=== PATIENT | female | born 1990 | race Asian ===

== ENCOUNTER 2017-06-28 10:23 | Emergency (ER) | payer OTHER ==
[2017-06-28] MEDS ORDERED: NS 1,000 ML IV ONE (11:02)
--- NOTE | 2017-06-28 11:05 | EDPHY ---
H & P Time Seen by Provider: 06/28/17 10:34 HPI/ROS: CHIEF COMPLAINT: Abdominal pain HISTORY OF PRESENT ILLNESS: 27-year-old female presents to the emergency department with left-sided abdominal pain. Pain began abruptly around 6 o' clock this morning. She states that she got up to use the bathroom and noticed pain in her left lower quadrant which was getting worse. She went to the formerly named [facility] on campus and had laboratory studies drawn and gave a urine specimen. She was sent to the emergency department for further evaluation. She denies nausea or vomiting. She had normal bowel movement this morning. No diarrhea. No back pain. No chest pain or difficulty breathing. Patient has never had pain like this in the past. Her last menstrual period was 3 weeks ago and she denies . She is in a monogamous relationship with another woman for last 6 months. Her partner has no symptoms. The patient is not concerned about sexually transmitted infections. REVIEW OF SYSTEMS: Constitutional: No fever, no chills. Eyes: No double or blurry vision. ENT: No sore throat. Respiratory: No cough, no shortness of breath. Cardiac: No chest pain. Gastrointestinal: Abdominal pain as above. No vomiting or diarrhea. Genitourinary: No dysuria. Musculoskeletal: No neck or back pain. Skin: No rashes. Neurological: No headache. Past Medical/Surgical History: Negative Social History: Single Smoking Status: Never smoked Physical Exam: General Appearance: Alert, no distress. Eyes: Pupils equal and round. Extraocular motions are all intact. ENT: Mouth: Mucous membranes moist. Respiratory: No wheezing, rhonchi, or rales, lungs are clear to auscultation. Cardiovascular: Regular rate and rhythm. Gastrointestinal: Abdomen is soft. Tenderness with palpation in the left lower quadrant. There is no masses, rebound or guarding noted. No CVA tenderness bilaterally. Genitourinary: Deferred Neurological: Alert and oriented x 3, cranial nerves II through XII grossly intact Skin: Warm and dry, no rashes. Musculoskeletal: Nontender to palpate along the cervical, thoracic or lumbar spine. Neck is supple. Extremities: Full range of motion and no peripheral edema. Psychiatric: Patient is oriented X 3, there is no agitation. Constitutional: Initial Vital Signs Temperature (C) 36.6 C 06/28/17 10:25 Heart Rate 86 06/28/17 10:25 Respiratory Rate 18 06/28/17 10:25 Blood Pressure 132/88 H 06/28/17 10:25 O2 Sat (%) 97 06/28/17 10:25 O2 Delivery Mode Room Air Allergies/Adverse Reactions: No Known Allergies Allergy (Verified 06/28/17 21:45) Home Medications: Medication Instructions Recorded oxyCODONE/APAP 5/325 [Percocet 1 - 2 tab PO Q4-6PRN PRN #15 tab 06/28/17 5/325] Medical Decision Making - Diagnostics Imaging: Discussed imaging studies w/ cap lining machine operator Radiologist ED Course/Re-evaluation: 27-year-old female presents to the emergency department with abdominal pain. Laboratory studies were reviewed from her visit earlier today at [facility]. Pelvic ultrasound reveals large 10 cm cyst the right ovary without evidence of torsion. Unable to visualize the left ovary. Patient required IV pain medication. I spoke with the on-call OBGYN, Dr. Dixon, who came to evaluate the patient. She did a bedside ultrasound as well as pelvic exam and she feels that the 10 cm cyst could possibly be on the left ovary. She states it is difficult to tell. She will be discharged home and will follow up as an outpatient with the OBGYN next week. Patient was comfortable being discharged home. She will return if she develops worsening pain, vomiting, altered mental status, or any other concerns. Differential Diagnosis: Including but not limited to ovarian cyst, ovarian torsion, acute appendicitis, urinary tract infection, pyelonephritis, kidney stone - Data Points Laboratory Results: 06/28/17 13:25 C.trachomatis RNA (TMA) NEGATIVE (NEGATIVE) N.gonorrhoeae RNA (TMA) NEGATIVE (NEGATIVE) Medications Given: Discontinued Medications Sodium Chloride (Ns) 1,000 mls @ 0 mls/hr IV ONCE ONE PRN Reason: Wide Open Stop: 06/28/17 11:03 Last Admin: 06/28/17 12:09 Dose: Not Given Oxycodone/Acetaminophen (Percocet 5/325) 1 tab PO EDNOW ONE Stop: 06/28/17 14:49 Last Admin: 06/28/17 14:59 Dose: 1 tab Departure - Departure Disposition: Home, Routine, Self-Care Clinical Impression: Ovarian cyst Qualifiers: Laterality: left Qualified Code(s): N83.202 - Unspecified ovarian cyst, left side Abdominal pain Qualifiers: Abdominal location: left lower quadrant Qualified Code(s): R10.32 - Left lower quadrant pain Condition: Good Instructions: Ovarian Cyst (ED), Acute Abdominal Pain (ED) Additional Instructions: Abdominal Pain: Return to the Emergency Department immediately for increasing pain, fever, vomiting, or if not completely better in 8-12 hours. Follow-up with Dr. Shantelle Dixon OBGYN, in 1 week to recheck. Ibuprofen 600 mg every 8 hr as needed for pain. Percocet for severe pain as directed. Referrals: Shantelle Dixon MD [Medical Doctor] - 5-7 days, call for appt. (OBGYN on-call) Prescriptions: oxyCODONE/APAP 5/325 [Percocet 5/325] 1 - 2 tab PO Q4-6PRN PRN #15 tab PRN Reason: For Moderate To Severe Pain
[2017-06-28 12:46] VITALS: RESP 16; TEMP 98.6
[2017-06-28] MEDS ORDERED: OXYCODONE/APAP 5/325 TAB PO ONE (14:48)
[2017-06-28 15:22] VITALS: BP 134/79; PULSE 92; O2SAT 96
[2017-06-29] MEDS ORDERED: ROCURONIUM 50 MG/5 ML VIAL ONE (09:02)
[2017-06-29] MEDS ORDERED: RANITIDINE 50 MG/2 ML VIAL ONE (09:02)
[2017-06-29] MEDS ORDERED: fentaNYL 250 MCG/5 ML INJ ONE (09:02)
[2017-06-29] MEDS ORDERED: PROPOFOL 200 MG/20 ML VIAL ONE (09:02)
[2017-06-29] MEDS ORDERED: DEXAMETHASONE 4 MG/ML VIAL ONE ×2 (09:02)
[2017-06-29] MEDS ORDERED: MIDAZOLAM 2 MG/2 ML VIAL ONE (09:12)
[2017-06-29] MEDS ORDERED: ONDANSETRON 4 MG/2 ML VIAL ONE (10:48)
[2017-06-29 13:09] LABS: GC AMPLIFICATION GENPROBE NEGATIVE (NEGATIVE)
== END 2017-06-28 15:21 | disposition home or self-care (01) ==
DX: N83.202 Unspecified ovarian cyst, left side (principal)
CPT/HCPCS: J1100; J2250; J2405; J2704; J2780; J3010

== ENCOUNTER 2017-06-28 21:39 | Observation (INO) | payer OTHER ==
[2017-06-28] MEDS ORDERED: NS 1,000 ML IV ONE (21:56)
[2017-06-28] MEDS ORDERED: HYDROmorphONE/DILAUDID 1 MG/ML INJ IVP ONE (21:56)
[2017-06-28] MEDS ORDERED: ONDANSETRON 4 MG/2 ML VIAL IVP ONE (21:56)
--- NOTE | 2017-06-28 21:56 | EDPHY ---
H & P Stated Complaint: still having pain didn't fill rx Time Seen by Provider: 06/28/17 21:41 HPI/ROS: HPI CHIEF COMPLAINT: Abdominal pain HISTORY OF PRESENT ILLNESS: Patient 27-year-old female she was seen here earlier today and diagnosed with a large ovarian cyst, OBGYN Dr. Dixon did consult on her they have given her return precautions about ruptured ovarian cyst versus ovarian torsion. She now presents back to the emergency room with worsening abdominal pain the pain is located very severe 10/10 left lower quadrant. I did review her recent ER visit ultrasound they were unable to visualize the left ovary. I question if she has left ovarian torsion. I will consult OBGYN. Will see if they want me to repeat her ultrasound. This time I have ordered blood work, lactic acid, IV fluids, IV pain medicine. And will re-evaluate. Past Medical History: Denies significant medical history Past Surgical History: Denies significant surgical history Social History: Denies drugs alcohol tobacco. Family History: ROS REVIEW OF SYSTEMS: A comprehensive 10 point review of systems is otherwise negative aside from elements mentioned in the history of present illness. Exam Constitutional triage nursing summary reviewed, vital signs reviewed, awake/ alert. Eyes normal conjunctivae and sclera, EOMI, PERRLA. HENT normal inspection, atraumatic, moist mucus membranes, no epistaxis, neck supple/ no meningismus, no raccoon eyes. Respiratory clear to auscultation bilaterally, normal breath sounds, no respiratory distress, no wheezing. Cardiovascular rate normal, regular rhythm, no murmur, no edema, distal pulses normal. Gastrointestinal soft, non-tender, no rebound, no guarding, normal bowel sounds, no distension, no pulsatile mass. Genitourinary no CVA tenderness. Musculoskeletal no midline vertebral tenderness, full range of motion, no calf swelling, no tenderness of extremities, no meningismus, good pulses, neurovascularly intact. Skin pink, warm, & dry, no rash, skin atraumatic. Neurologic awake, alert and oriented x 3, AAOx3, moves all 4 extremities equally, motor intact, sensory intact, CN II-XII intact, normal cerebellar, normal vision, normal speech. Psychiatric normal mood/affect. Heme/Lymph/Immune no lymphadenopathy. Differential Diagnosis: Includes but is not limited to in a particular order ruptured ovarian cyst, ovarian torsion, refer cyst abdominal pain Medical Decision Making: Plan for this patient IV establishment with fluid bolus 1 L normal saline, IV Dilaudid 0.5 mg for pain control, IV Zofran 4 mg for nausea, check basic blood work and re-evaluate. Re-evaluation: Reviewed previous ultrasound unable to visualize left adnexa. Will repeat ultrasound. 2208: At this time I did consult OBGYN Dr. Dixon for evaluation of this patient' s ongoing abdominal pain. She would like a repeat ultrasound which I have ordered. 2307: Reexamine at this time. Her lactic acid is noted to be elevated. 2nd L fluid going in. Lactic acid elevated not from cause of sepsis. Pain is well controlled at this time with 1 mg IV Dilaudid. Ultrasound results are pending. Has been completed. 2318: Spoke with OBGYN again Dr. Dixon. She will come and see and evaluate the patient. I did review her repeat ultrasound with her. There is a large right adnexal structure 10 cm x 9 cm. Again were unable to visualize the structures on the left adnexa. Bowel gas obstruction this. At this time she is hemodynamically stable. Her pain is well controlled at this point. 1226: Dr. Dixon has accepted to admit the patient. Patient at time of admission hemodynamically stable and pain is well controlled. Not vomiting. She is comfortable after 1 mg IV Dilaudid earlier. Source: Patient - Personal History LMP (Females 10-55): 15-21 Days Ago Current Tetanus/Diphtheria Vaccine: No Current Tetanus Diphtheria and Acellular Pertussis (TDAP): No - Medical/Surgical History Hx Asthma: No Hx Chronic Respiratory Disease: No Hx Diabetes: No Hx Cardiac Disease: No Hx Renal Disease: No Hx Cirrhosis: No Hx Alcoholism: No Hx HIV/AIDS: No Hx Splenectomy or Spleen Trauma: No Other PMH: denies - Social History Smoking Status: Never smoked Constitutional: Initial Vital Signs Temperature (C) 36.8 C 06/28/17 21:41 Heart Rate 93 06/28/17 21:41 Respiratory Rate 16 06/28/17 21:41 Blood Pressure 124/86 H 06/28/17 21:41 O2 Sat (%) 99 06/28/17 21:41 O2 Delivery Mode Room Air Allergies/Adverse Reactions: No Known Allergies Allergy (Verified 06/28/17 21:45) Home Medications: Medication Instructions Recorded oxyCODONE/APAP 5/325 [Percocet 1 - 2 tab PO Q4-6PRN PRN #15 tab 06/28/17325] Medical Decision Making - Diagnostics Imaging Results: Imaging Impressions Pelvic/Renal Ultrasound 06/28/17 22:08 Impression: 1. Left ovary cannot be identified. 2. No hemoperitoneum. 3. Large right ovarian complex cyst and right hydrosalpinx are unchanged since 11 hours earlier. Minimal mural blood flow within the right ovarian cyst. Findings discussed with Emergency Department physician, Dru Davidson MD at 06/28/2017 23:15. - Data Points Laboratory Results: Laboratory Results 06/28/17 22:00 06/28/17 22:00 06/29/17 06/28/17 06/28/17 00:15 22:00 22:00 WBC RBC Hgb Hct MCV MCH MCHC RDW Plt Count MPV Neut % (Auto) Lymph % (Auto) [place] % (Auto) Eos % (Auto) Baso % (Auto) Nucleat RBC Rel Count Absolute Neuts (auto) Absolute Lymphs (auto) Absolute Monos (auto) Absolute Eos (auto) Absolute Basos (auto) Absolute Nucleated RBC Immature Gran % Immature Gran # PT 13.3 SEC SEC (12.0-15.0) INR 0.99 (0.83-1.16) APTT 32.5 SEC SEC (23.0-38.0) VBG Lactic Acid 1.2 mmol/L D mmol/L (0.7-2.1) Sodium 136 mEq/L mEq/L (135-145) Potassium 3.4 mEq/L L mEq/L (3.5-5.2) Chloride 105 mEq/L mEq/L (97-110) Carbon Dioxide 18 mEq/l L mEq/l (22-31) Anion Gap 13 mEq/L mEq/L (8-16) BUN 8 mg/dL mg/dL (7-23) Creatinine 0.5 mg/dL L mg/dL (0.6-1.0) Estimated GFR > 60 Glucose 101 mg/dL H mg/dL (70-100) Calcium 9.7 mg/dL mg/dL (8.5-10.4) 06/28/17 06/28/17 22:00 22:00 WBC 11.51 10^3/uL H 10^3/uL (3.80-9.50) RBC 4.95 10^6/uL 10^6/uL (4.18-5.33) Hgb 16.0 g/dL g/dL (12.6-16.3) Hct 44.8 % % (38.0-47.0) MCV 90.5 fL fL (81.5-99.8) MCH 32.3 pg pg (27.9-34.1) MCHC 35.7 g/dL g/dL (32.4-36.7) RDW 11.9 % % (11.5-15.2) Plt Count 310 10^3/uL 10^3/uL (150-400) MPV 8.8 fL fL (8.7-11.7) Neut % (Auto) 65.3 % % (39.3-74.2) Lymph % (Auto) 27.6 % % (15.0-45.0) [place] % (Auto) 6.1 % % (4.5-13.0) Eos % (Auto) 0.3 % L % (0.6-7.6) Baso % (Auto) 0.3 % % (0.3-1.7) Nucleat RBC Rel Count 0.0 % % (0.0-0.2) Absolute Neuts (auto) 7.52 10^3/uL H 10^3/uL (1.70-6.50) Absolute Lymphs (auto) 3.18 10^3/uL H 10^3/uL (1.00-3.00) Absolute Monos (auto) 0.70 10^3/uL 10^3/uL (0.30-0.80) Absolute Eos (auto) 0.03 10^3/uL 10^3/uL (0.03-0.40) Absolute Basos (auto) 0.03 10^3/uL 10^3/uL (0.02-0.10) Absolute Nucleated RBC 0.00 10^3/uL 10^3/uL (0-0.01) Immature Gran % 0.4 % % (0.0-1.1) Immature Gran # 0.05 10^3/uL 10^3/uL (0.00-0.10) PT INR APTT VBG Lactic Acid 2.9 mmol/L H mmol/L (0.7-2.1) Sodium Potassium Chloride Carbon Dioxide Anion Gap BUN Creatinine Estimated GFR Glucose Calcium Medications Given: Discontinued Medications Hydromorphone HCl (Dilaudid) 1 mg IVP EDNOW ONE Stop: 06/28/17 22:04 Last Admin: 06/28/17 22:11 Dose: 1 mg Sodium Chloride (Ns) 1,000 mls @ 0 mls/hr IV EDNOW ONE; Wide Open PRN Reason: Protocol Stop: 06/28/17 21:57 Last Admin: 06/28/17 22:10 Dose: 1,000 mls Ondansetron HCl (Zofran) 4 mg IVP EDNOW ONE Stop: 06/28/17 21:57 Last Admin: 06/28/17 22:11 Dose: 4 mg Departure - Departure Disposition: [facility] Clinical Impression: Pelvic pain in female Ovarian cyst Qualifiers: Laterality: left Qualified Code(s): N83.202 - Unspecified ovarian cyst, left side Condition: Good Referrals: NONE *PRIMARY CARE P,. [Primary Care Provider] - As per Instructions
[2017-06-28] MEDS ORDERED: HYDROmorphONE/DILAUDID 2 MG/ML INJ IVP ONE (22:03)
[2017-06-28 22:19] LABS: PLATELET COUNT 310 10^3/uL (150-400)
[2017-06-28 22:21] LABS: INR 0.99 (0.83-1.16); PROTIME(PATIENT) 13.3 SEC (12.0-15.0)
--- NOTE | 2017-06-29 00:32 | PDCONSULT ---
Mortar Worker Note: CC: return of abdominal pain, didn't fill RX for Percocet HPI: Pt seen and evaluated in ED this afternoon for abd/pelvic pain. Was found to have 9 cm right adnexal cyst, mostly anechoic, and probable 5cm hydrosalpinx. When left ED after Toradol and Percocet, was nearly pain free. Did not stop to pick up operator Rx for Percocet as directed. Ate dinner around 1700, and was feeling well. A few hours after that, her pain increased. No urinary symptoms - no urgency, frequency or dysuria. NO constipation or diarrhea. Had a normal BM this morning. Pain is mostly in low abd, slightly greater on L over R. Pain became very severe after pain medication wore off, enough to bring her back to the ED. Walked to car of friend who brought her here. NO nausea or vomiting. No unusual vaginal itching or discharge. LMP about 3 weeks ago -menses regular. PMH:none Medications: none except what she received in the ED earlier today. PSH: None Soc: [employer] student, sexually active in same sex relationship for past 6 months. ROS: neg x 10 points except as above in HPI. O:vss afeb CV: RRR chest: CTAB abd: soft, nondistended, no rebound, mild guarding (has dilaudid on board, prior to my exam) pelvic: speculum exam not repeated as was done this afternoon. bimanual: no cervical motion tenderness, fullness and tenderness midline and right adnexa - unchanged from earlier today, unable to palpate left adnexa. US images reviewed with the technologist who performed the ultrasound - again unable to visualize the left adnexa - appears to be obscured by bowel gas. R adnexal cyst and hydrosalpinx appear unchanged from earlier today. It appears as the uterus is being compressed by adnexal cyst anteriorly and hydrosalpinx posteriorly. Flow is seen to right adnexa. labs - U preg neg from earlier today . CBC stable, WBC slightly elevated at 11. Impression: 27 year G0 with pelvic/abd pain, likely related to ovarian cyst and hydrosalpinx Differential diagnosis includes: ovarian torsion - though abdomen is not acute and currently there is flow to right adnexa, ruptured adnexal cyst, - with tubo- ovarian abscess and PID much less likely with only mildly elevated WBC, afebrile , and same sex relationship. Plan: Admit for pain control and observation. Will use IV dilaudid overnight, with plan to transition to oral pain medication in the morning, so could dc home and follow up on an outpatient basis. If pain significantly worsens or is unable to be controlled, will perform diagnostic laparoscopy. Reviewed all of this with patient, and questions answered. Over 25 minutes spent with over 50% of time in face to face counseling. Shantelle Dixon MD 0052 on 06/29/17 History of Present Illness - General Stated Complaint: still having pain didn't fill rx Time Seen by Provider: 06/28/17 23:55 Source: Patient Exam Limitations: No limitations HPI: Timing/Duration: Hours, Changing over time, Intermittent Quality: severe Abdominal Pain Location: suprapubic Pain Radiation: no radiation Activities at Onset: none Modifying Factors: improves with: analgesics Associated Symptoms: denies symptoms Initial Vital Signs: Initial Vital Signs Temperature (C) 36.8 C 06/28/17 21:41 Heart Rate 93 06/28/17 21:41 Respiratory Rate 16 06/28/17 21:41 Blood Pressure 124/86 H 06/28/17 21:41 O2 Sat (%) 99 06/28/17 21:41 O2 Delivery Mode Room Air Allergies/Adverse Reactions: No Known Allergies Allergy (Verified 06/28/17 21:45) Home Medications: Medication Instructions Recorded oxyCODONE/APAP 5/325 [Percocet 1 - 2 tab PO Q4-6PRN PRN #15 tab 06/28/17 5/325]
[2017-06-29] MEDS ORDERED: diphenhydrAMINE 25 MG CAP PO PRN (00:53)
[2017-06-29] MEDS ORDERED: ACETAMINOPHEN 325 MG TAB PO PRN (00:53)
[2017-06-29] MEDS ORDERED: ONDANSETRON 4 MG/2 ML VIAL IVP PRN (00:53)
[2017-06-29] MEDS ORDERED: ONDANSETRON DISINTEGRATING 4 MG TAB PO PRN (00:53)
[2017-06-29] MEDS ORDERED: HYDROmorphONE/DILAUDID 1 MG/ML INJ IVP PRN (00:53)
[2017-06-29] MEDS ORDERED: D5W 1/2 NS W/ 20 KCl/L 1,000 ML IV SCH (01:00)
--- NOTE | 2017-06-29 04:21 | SOAPPROG ---
SOAP Progress Note Assessment/Plan: Assessment:27 yo G0 with abd/pelvic pain - admitted for pain control, though has not needed pain medication since received IV dilaudid in the ED > 4 hours ago, with R ov cyst and likely hydrosalpinx Plan:Keep NPO for now and reassess in a few hours. 06/29/17 04:18 Subjective: Pt sleeping - aroused easily. Reports only mild discomfort, and has been able to get some rest. Objective: Vital Signs Temp Pulse Resp BP Pulse Ox 36.7 C 77 16 107/64 94 06/29/17 01:14 06/29/17 01:14 06/29/17 01:14 06/29/17 01:14 06/29/17 01:14 06/27/17 06/28/17 06/29/17 05:59 05:59 05:59 Output Total 270 Balance -270 PT 13.3 SEC (12.0-15.0) 06/28/17 22:00 INR 0.99 (0.83-1.16) 06/28/17 22:00 O: sleeping, easily aroused abd: soft, mild low abd tenderness with palpation, no rebound or guarding - Time Spent With Patient Time Spent With Patient: 3 min - Pending Discharge Pending Discharge Within 24 Hours: Yes Pending Discharge Within 48 Hours: Yes Pending Discharge Date: 06/29/17 Pending Discharge Time: 11:00 ICD10 Worksheet Patient Problems: Problems Problem Status Onset Ovarian cyst Acute Pelvic pain in female Acute
[2017-06-29 06:36] LABS: PLATELET COUNT 236 10^3/uL (150-400)
--- NOTE | 2017-06-29 06:37 | SOAPPROG ---
SODESIRAE Progress Note Assessment/Plan: Assessment:27 yo G0 with abd/pelvic pain - admitted for pain control, though has not needed pain medication since received IV dilaudid in the ED > 4 hours ago, with R ov cyst and likely hydrosalpinx Plan:Keep NPO for now and reassess in a few hours. 06/29/17 04:18 06/29/17 06:33 A; 27 yo G0 with recurrent severe LLQ pain P: IV dilaudid and will likely need to proceed with diagnostic laparoscopy - will check with OR Subjective: Slept, until about 0600, then up to void, and pain became severe again. Currently is 8 of 10. When came to ED was 10/10 per her report. No meds were given since 2229 (over 7 hours). Objective: Vital Signs Temp Pulse Resp BP Pulse Ox 36.9 C 72 16 98/60 L 98 06/29/17 05:52 06/29/17 05:52 06/29/17 05:52 06/29/17 05:52 06/29/17 05:52 06/28/17 06/29/17 06/30/17 05:59 05:59 05:59 Intake Total 455 Output Total 270 Balance 185 PT 13.3 SEC (12.0-15.0) 06/28/17 22:00 INR 0.99 (0.83-1.16) 06/28/17 22:00 abd: soft, mod tenderness in low abd L>R, voluntary guarding, no rebound or peritoneal signs ext: mobile, NT - Time Spent With Patient Time Spent With Patient: 10 min with over 50% in face to face. - Pending Discharge Pending Discharge Within 24 Hours: Yes Pending Discharge Within 48 Hours: Yes Pending Discharge Date: 06/30/17 Pending Discharge Time: 11:00 ICD10 Worksheet Patient Problems: Problems Problem Status Onset Ovarian cyst Acute Pelvic pain in female Acute
[2017-06-29] MEDS ORDERED: ceFAZolin 2 GM/SWFI 2 GM/20 ML SYR IVP ONE (06:51)
[2017-06-29] MEDS ORDERED: SILVER NITRATE APPLICATOR 1 APPL TP ONE (07:49)
[2017-06-29] MEDS ORDERED: BUPIVACAINE 0.25% 30 ML SDV ONE (07:49)
[2017-06-29] MEDS ORDERED: LR 1,000 ML IV ONE (08:42)
--- NOTE | 2017-06-29 08:49 | PDHPUP ---
History & Physical Update H&P update statement: This history and physical update is based on an assessment of the patient which was completed after admission or registration (within 24 hours), but prior to the surgery/procedure. H&P update: H&P reviewed & patient examined, no change in patient's condition since H&P completed H&P changes: No changes. 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 Numerous questions answered. Written informed consent was obtained.
--- NOTE | 2017-06-29 08:54 | PDANEPAE ---
ANE Past Medical History - Cardiovascular History Hx Hypertension: No Hx Arrhythmias: No Hx Chest Pain: No Hx Coronary Artery / Peripheral Vascular Disease: No Hx CHF / Valvular Disease: No Hx Palpitations: No - Pulmonary History Hx COPD: No Hx Asthma/Reactive Airway Disease: No Hx Recent Upper Respiratory Infection: No Hx Oxygen in Use at Home: No Hx Sleep Apnea: No - Endocrine History Hx Diabetes: No Hypothyroid: No Hyperthyroid: No - Renal History Hx Renal Disorders: No - Liver History Hx Hepatic Disorders: No - Neurological & Psychiatric Hx Hx Neurological and Psychiatric Disorders: No - Cancer History Hx Cancer: No - Congenital Disorder History Hx Congenital Disorders: No - GI History GERD: no - Chronic Pain History Chronic Pain: No - Surgical History Prior Surgeries: None ANE Review of Systems Review of Systems: - Exercise capacity METS (RN): 3 METS ANE Patient History - Allergies Allergies/Adverse Reactions: No Known Allergies Allergy (Verified 06/28/17 21:45) - NPO status NPO Since - Liquids (Date): 06/28/17 NPO Since - Liquids (Time): 18:00 NPO Since - Solids (Date): 06/28/17 NPO Since - Solids (Time): 18:00 - Smoking Hx Smoking Status: Current some day smoker (1 cigarette every 2 weeks) - Alcohol Use Alcohol Use: Other (1 drink every two weeks) - Family Anes Hx Family Anes Hx: none ANE Labs/Vital Signs - Labs Result Diagrams: 06/29/17 06:30 06/28/17 22:00 - Vital Signs Blood Pressure: 97/71 Heart Rate: 83 Respiratory Rate: 16 O2 Sat (%): 99 Height: 162.56 cm Weight: 68.039 kg ANE Physical Exam - Airway Neck exam: FROM Mallampati Score: Class 3 Mouth exam: normal dental/mouth exam - Pulmonary Pulmonary: clear to auscultation - Cardiovascular Cardiovascular: regular rate and rhythym - ASA Status ASA Status: II ANE Anesthesia Plan Anesthesia Plan: general endotracheal anesthesia
[2017-06-29] MEDS ORDERED: MIDAZOLAM 2 MG/2 ML VIAL IVP ONE ×2 (08:58→09:00)
[2017-06-29] MEDS ORDERED: METHYLENE BLUE 0.5% 50 MG/10 ML AMP ONE (10:16)
[2017-06-29] MEDS ORDERED: NALOXONE HCL 0.4 MG/ML INJ IVP PRN (11:08)
--- NOTE | 2017-06-29 12:50 | POSTOPPROG ---
Post Op Note Date of Operation: 06/29/17 Surgeon: Shantelle Dixon Industrial Nurse: Deb Cruz Anesthesiologist: Dorian Funk Anesthesia: GET(General Endotracheal) Pre-op Diagnosis: abdominal pain, ovarian cyst and hydrosalpinx Post-op Diagnosis: bilateral ovarian dermoid cysts Indication: pelvic pain Procedure: laparoscopic bilateral ovarian cystectomy Findings: bilateral large ovarian dermoid cysts Inf/Abcess present in the surg proc area at time of surgery?: No EBL: 50-100 Total fluids administered: 800 Complications: none Specimen(s): bilateral ovarian cysts
[2017-06-29] MEDS ORDERED: fentaNYL 100 MCG/2 ML INJ ONE (12:57)
[2017-06-29] MEDS: fentaNYL 100 MCG/2 ML INJ IVP PRN ×3 (12:57→13:33)
[2017-06-29] MEDS ORDERED: ACETAMINOPHEN 325 MG TAB ONE (13:19)
[2017-06-29] MEDS ORDERED: OXYCODONE/APAP 5/325 TAB PO PRN (13:29)
[2017-06-29] MEDS ORDERED: oxyCODONE IR 5 MG TAB ONE (13:32)
--- NOTE | 2017-06-29 13:36 | POSTANESTH ---
Post Anesthetic Evaluation Cardiovascular Status: Normal, Stable Respiratory Status: Normal, Stable Level of Consciousness/Mental Status: Can Participate in Eval Pain Control: Adequate, Prn Tx Ordered Nausea/Vomiting Control: Adequate, Prn Tx Ordered Complications Possibly Related to Anesthesia: None Noted
[2017-06-29] MEDS ORDERED: oxyCODONE IR 5 MG TAB PO ONE (14:00)
--- NOTE | 2017-06-29 14:23 | GOP ---
[f rep st] OPERATIVE REPORT DATE OF OPERATION: 06/29/2017 SURGEON: Shantelle Dixon MD FLUID DYNAMICIST: Deb Cruz MD, needed for adequate operation of laparoscopic instruments. ANESTHESIOLOGIST: Dorian Funk MD. PREOPERATIVE DIAGNOSIS: Ovarian cyst and hydrosalpinx. POSTOPERATIVE DIAGNOSIS: Bilateral ovarian dermoid cysts. PROCEDURE PERFORMED: Laparoscopic bilateral ovarian cystectomy with chromopertubation. FINDINGS: Bilateral large ovarian cyst. Each cyst appeared to be a dermoid containing sebum and divya r material. ESTIMATED BLOOD LOSS: 50 mL. INDICATIONS: A 27-year-old G0, who presented to the emergency room yesterday and again last night wi recurrent intermittent lower abdominal pain. Ultrasound imaging suggested large left adnexal cyst and hydrosalpinx. She was admitted overnight for pain control. When her pain returned severely thi s morning the decision was made to proceed with diagnostic laparoscopy. DESCRIPTION OF PROCEDURE: Written informed consent was reviewed with the patient. She was taken to the preoperative area and prepared. She was then taken to the operating room and placed in the dorsa l supine position. She was given 2 g of Ancef preoperatively. Once general anesthesia was deemed ad equate, she was placed in the dorsal lithotomy postion using Yellofin stirrups. Her vagina and abdom en were sterilely prepared and draped in the standard fashion. A Louis catheter was inserted into he r bladder. A time-out was performed. A speculum was inserted into the vagina. Tenaculum was fasten ed to the cervix. An Petoskey cannula was inserted through the cervix and fastened to the tenaculum. G loves were changed and attention was turned to the abdomen. Infraumbilical area was infiltrated with 0.25% Marcaine plain. The skin was incised. A 5 mm trocar was used with direct visualization to en ter into the peritoneum. This was then later replaced by a 10 mm trocar. 5 mm ports were placed und er direct visualization in a similar fashion in both the right and left lower quadrants. Instruments were used to lift and manipulate the pelvic organs with the above findings. The left ovary was inci sed using the LigaSure hook. This incision was made over the cystic area of the ovary distal to the ovarian blood supply. The ovarian tissue was grasped. The cyst wall was entered with release of sergio ar fluid initially. The cyst wall was able to be gently peeled away from the remaining normal ovary. This was done with a combination of blunt twisting and sharp dissection. When the entire cysts had been removed, cameras were changed, and the EndoCatch bag was placed through the 10 mm port. The en tire cyst was placed into the EndoCatch bag. The cyst had ruptured the removal. Suction irrigation was performed. Initially the left tube appeared slightly dilated and twisted. After removal of the left ovarian cyst, the left tube appeared normal. Attention was then turned to the right ovary, whic h was in the posterior cul-de-sac. This was elevated and the cystic area was also incised in a simil ar fashion. The cyst was removed in a similar fashion to the left ovarian cystectomy. This cyst was also not able to be kept intact. It was also removed in an EndoCatch bag. Copious suction irrigati on was performed after the cysts were both removed. The patient was placed in reverse Trendelenburg and irrigation was performed again. Pressure was then decreased in the abdomen, and the operative si chuck of both ovaries were deemed hemostatic after the addition of some cautery using the LigaSure hook . Chromopertubation was performed and the left tube filled and spilled easily. The right tube appea red normal but did not spill in the chromopertubation fluid. The trocars were then removed under dir ect visualization. The abdomen was desufflated. The umbilical fascia was closed with 0 Vicryl in a r unning fashion. The skin was closed with 4-0 Monocryl in a running subcuticular fashion followed by Dermabond skin glue. The instruments were removed from the vagina. The patient was extubated in the operating room, and taken to the recovery room in stable condition. Sponge, lap, and needle counts were correct x2. I did speak with her 2 female friends in the consult room afterward, as she had given permission for me to do this. The plan will be to observe her over the next couple hours and anticipate home going later today. IV FLUIDS: 800 mL crystalloid. URINE OUTPUT: 150 by urinary catheter removed at the end of the case. COMPLICATIONS: None. /[id number]/MODL
[2017-06-29 18:54] VITALS: O2SAT 97
[2017-06-29] MEDS ORDERED: FLU VACC QS 2017-18 (3YR+)/PF 0.5 ML SYR (FLUARIX QUAD) IM ONE (19:18)
[2017-06-29 20:19] VITALS: BP 99/59; PULSE 88; RESP 16; TEMP 98.8
== END 2017-06-29 20:45 | disposition still patient (30) ==
LOC: FOB 06-29 01:12
PROVIDERS: ADMIT Hospitalist; ATTEND Hospitalist
PROC: 0UB14ZZ Excision of Left Ovary, Percutaneous Endoscopic Approach (ICD-10-PCS; principal; 2017-06-29 09:00)
DX: N83.202 Unspecified ovarian cyst, left side (principal)
CPT/HCPCS: 58662; 76856; 90471; G0378; 96374; G0008; J0690; J1170; J2250; J2405; J3010; Q9968